=== PATIENT | female | born 1965 | race Caucasian/White ===

== ENCOUNTER 2016-12-15 01:54 | Emergency (ER) | payer BC ==
[2016-12-15 02:05] VITALS: TEMP 97.9; O2SAT 96
[2016-12-15] MEDS ORDERED: ONDANSETRON DISINTEGRATING 4 MG TAB ONE (02:12)
[2016-12-15] MEDS ORDERED: ONDANSETRON DISINTEGRATING 4 MG TAB PO ONE (02:13)
[2016-12-15] MEDS ORDERED: SKIN ADHESIVE (DERMABOND) 1 EACH TP ONE (02:32)
--- NOTE | 2016-12-15 02:32 | EDPHY ---
H & P Stated Complaint: pt +etoh, tripped and fell hitting face, no loc, abrasions/ lacs to face Time Seen by Provider: 12/15/16 02:13 HPI/ROS: Chief Complaint: Facial injury, fall HPI: 51-year-old woman who is here visiting her daughter has been drinking a fair amount of alcohol this morning. She chemical trip and fall in the parking garage her daughter's apartment. She struck her face on the ground. She sustained some lacerations and was bleeding from her nose. She had no loss of consciousness. No neck pain or weakness. Fall was witnessed by her family. States she has broken her nose in the past. Has had some nausea and vomiting. No chest pain. No extremity pain. No abdominal pain. ROS: 10 point Review of Systems is negative except as noted in the HPI. PMH: Denies Social History: No smoking, positive for alcohol, no recreational drug use Family History: non-contributory Physical Exam: Gen: Awake, Alert, Airway Intact HEENT: Head: Atraumatic Eyes: PERRLA, EOMI Ears: No hemotympanum Nose: Dried blood in bilateral nares, no septal hematoma. She has got superficial 1 laceration and abrasions to the bridge of her nose. There is some moderate asymmetrical swelling. Mouth: Normal dentition, Airway patent Face: No deformity Neck: non-tender, no stepoff, Full ROM without pain Chest: non-tender, lungs CTA Heart: normal heart tones Abd: soft, non-tender, atraumatic Pelvis: non-tender, stable to AP and Lateral compression Back: atraumatic, no midline tenderness Ext: atramatic, full ROM Skin: no rash Neuro: CN II-XII intact, Strength 5/5 in all extremities, sensation intact in all extremities - Medical/Surgical History Hx Asthma: No Hx Chronic Respiratory Disease: No Hx Diabetes: No Hx Cardiac Disease: No Hx Renal Disease: No Hx Cirrhosis: No Hx Alcoholism: No Hx HIV/AIDS: No Hx Splenectomy or Spleen Trauma: No Other PMH: depression, orif R 5th finger - Social History Smoking Status: Never smoked Constitutional: Initial Vital Signs Temperature (C) 36.6 C 12/15/16 01:59 Heart Rate 93 12/15/16 01:59 Respiratory Rate 20 12/15/16 01:59 Blood Pressure 103/83 H 12/15/16 01:59 O2 Sat (%) 96 12/15/16 01:59 O2 Delivery Mode Room Air Allergies/Adverse Reactions: tetracycline Allergy (Verified 12/15/16 02:05) Home Medications: Medication Instructions Recorded Ambien 12/15/16 Celexa 12/15/16 LaMICtal 12/15/16 Wellbutrin Xl 12/15/16 Medical Decision Making Procedures: Procedure: Laceration 1. repair with skin glue. The 5 mm laceration on the nose. The wound was cleaned and explored to its base with a gloved finger. There were no deep structures involved. The wound was repaired with tissue adhesive. The procedure was performed by myself. Procedure: Laceration 2. repair with skin glue. The 7 mm laceration on the nose. The wound was cleaned and explored to its base with a gloved finger. There were no deep structures involved. The wound was repaired with tissue adhesive. The procedure was performed by myself. - Data Points Medications Given: Discontinued Medications Ondansetron HCl (Zofran Odt) 4 mg PO EDNOW ONE Stop: 12/15/16 02:14 Last Admin: 12/15/16 02:15 Dose: 4 mg Departure - Departure Disposition: Home, Routine, Self-Care Clinical Impression: Laceration, Abrasion, Nasal contusion, Alcohol intoxication Condition: Good Instructions: Head Injury (ED), Skin Adhesive Care (ED), Nasal Contusion (ED), Alcohol Intoxication (ED) Additional Instructions: Return to the emergency department for worsening headache, worsening nausea vomiting, confusion, neck pain, numbness, tingling, or any other concerns. Referrals: Patient,NotPresent [Unknown] - As per Instructions
[2016-12-15 03:48] VITALS: BP 121/74; PULSE 67; RESP 16
== END 2016-12-15 03:49 | disposition home or self-care (01) ==
PROC: 0HQ1XZZ Repair Face Skin, External Approach (ICD-10-PCS; principal; 2016-12-15)
DX: S01.21XA Laceration without foreign body of nose, initial encounter (principal); F10.129 Alcohol abuse with intoxication, unspecified; W01.198A Fall on same level from slipping, tripping and stumbling with subsequent striking against other object, initial encounter; Y92.89 Other specified places as the place of occurrence of the external cause; Y93.89 Activity, other specified